=== PATIENT | female | born 1995 | race Caucasian/White ===

== ENCOUNTER 2016-10-06 18:55 | Observation (INO) ==
[2016-10-06 19:18] LABS: Apearance,Urine Slightly Hazy (Clear); Bilirubin,Urine Negative (Negative); Blood, Urine Negative (Negative); Calcium Oxalate Crystals,Urine Many /HPF (Few); Glucose,Urine (UA) Negative (Negative); Ketones,Urine 5 mg/dL (Negative); Mucus,Urine Many /LPF (Occasional); Nitrite,Urine Negative (Negative); Protein,Urine Negative; RBC,Urine 10 /HPF (0-4); Squamous Epithelial Cell,Urine Occasional /HPF (0-10); Urine Color Yellow (Yellow); Urine Specific Gravity 1.028 (1.001-1.035); WBC,Urine 2 /HPF (0-6)
[2016-10-06 19:54] LABS: Barbiturates Screen,Urine Negative (Negative); Benzodiazepines Screen,Urine Negative (Negative); Cannabinoid Screen,Urine Positive (Negative); Opiate Screen,Urine Negative (Negative); Phencyclidine Screen,Urine Negative (Negative)
[2016-10-06 21:40] VITALS: BP 102/56
== END 2016-10-06 20:15 | disposition home or self-care (01) ==
LOC: N.LD
PROVIDERS: ADMIT Obstetrics & Gynecology; ATTEND Obstetrics & Gynecology

== ENCOUNTER 2017-01-31 01:25 | Inpatient (IN) ==
[2017-01-31] MEDS ORDERED: MEPERIDINE 50 MG/1 ML VIAL IV PRN (01:43)
[2017-01-31] MEDS ORDERED: ONDANSETRON 4 MG/2 ML VIAL IV PRN (01:43)
[2017-01-31] MEDS ORDERED: BUTORPHANOL 2 MG/ML VIAL IV PRN (01:43)
[2017-01-31] MEDS ORDERED: PROMETHAZINE 25 MG/1 ML VIAL IM ONE (01:45)
[2017-01-31] MEDS ORDERED: CITRIC ACID/SODIUM CITRATE 30 ML UDCUP PO ONE (01:45)
[2017-01-31] MEDS ORDERED: ePHEDrine 50 MG/ML AMP IV PRN (01:45)
[2017-01-31] MEDS ORDERED: FAMOTIDINE 20 MG/2 ML VIAL IV ONE (01:45)
[2017-01-31] MEDS ORDERED: ONDANSETRON 4 MG/2 ML VIAL IV ONE (01:45)
[2017-01-31] MEDS ORDERED: fentaNYL 2 MCG/ROPIV 0.2% EPID 150 ML EPIDURAL SCH (01:45)
[2017-01-31] MEDS ORDERED: diphenhydrAMINE 50 MG/1 ML VIAL IV PRN ×2 (01:45)
[2017-01-31] MEDS ORDERED: hydrOXYzine HCL 25 MG/1 ML VIAL IM PRN (01:45)
[2017-01-31] MEDS: LACTATED RINGERS 1,000 ML IV SCH ×2 (01:50→02:37)
[2017-01-31] MEDS ORDERED: AMPICILLIN INJ 2,000 MG in SODIUM CHLORIDE 0.9% 100 ML IV ONE (02:08)
[2017-01-31] MEDS ORDERED: SODIUM CHLORIDE 0.9% 100 ML IV ONE ×2 (02:11→05:25)
[2017-01-31] MEDS ORDERED: AMPICILLIN 2,000 MG VIAL ONE (02:11)
[2017-01-31 02:37] LABS: Apearance,Urine CLOUDY (Clear); Bacteria,Urine Few /HPF (Few); Bilirubin,Urine Negative (Negative); Blood, Urine Negative (Negative); Glucose,Urine (UA) Negative (Negative); Ketones,Urine Negative (Negative); Nitrite,Urine Negative (Negative); Protein,Urine Negative; Squamous Epithelial Cell,Urine Occasional /HPF (0-10); Urine Color Yellow (Yellow); Urine Urobilinogen < 2.0 EU/DL (0.2-1.0); WBC,Urine 6 /HPF (0-6)
[2017-01-31 02:38] LABS: Basophils # 0.1 10*3/uL (0.0-0.2); Basophils % 0.5 % (0.0-0.8); Eosinophils # 0.2 10*3/uL (0.0-0.87); Hematocrit 38.2 VOL% (35.7-47.0); Hemoglobin 13.5 GM/DL (12.0-16.0); Immature Granulocytes % 0.9 %; Immature Granulocytes Absolute 0.14 #; Lymphocytes # 3.7 10*3/uL (1.4-4.0); Mean Corpuscular HGB Conc 35.3 GM/DL (32-36); Mean Corpuscular Hemoglobin 31 PG (27-34); Mean Corpuscular Volume 86.6 FL (87-102); Mean Platelet Volume 12.1 FL (9.6-12.0); Monocytes # 1.6 10*3/uL (0.11-0.8); Monocytes % 10.4 % (1.7-12.7); Neutrophils # 9.9 10*3/uL (1.4-7.4); Neutrophils % 63.2 % (38.7-73.9); Platelet Count 175 T/CUMM (130-400); Red Blood Count 4.41 MC/CUMM (3.8-5.5); Red Cell Distribution Width 13.5 % (9.3-17.3); White Blood Count 15.6 T/CUMM (4-12)
[2017-01-31 02:39] LABS: Alanine Aminotransferase 10 U/L (13-56); Albumin 2.3 G/DL (3.4-5.0); Alkaline Phosphatase 140 U/L (45-117); Aspartate Amino Transferase 11 U/L (0-37); Bilirubin,Total < 0.39 MG/DL (0.2-1.0); Blood Urea Nitrogen 10 MG/DL (7-18); Calcium 8.2 MG/DL (8.5-10.1); Glucose 72 MG/DL (74-106); Osmolality,Calculated 280.1 MOS/KG (273-304); Potassium 4.1 MMOL/L (3.5-5.1); Sodium 142 MMOL/L (136-145); Total Protein 5.7 G/DL (6.4-8.3)
[2017-01-31 04:48] LABS: Apearance,Urine CLEAR (Clear); Bacteria,Urine Occasional /HPF (Few); Bilirubin,Urine Negative (Negative); Blood, Urine Negative (Negative); Glucose,Urine (UA) Negative (Negative); Ketones,Urine Negative (Negative); Mucus,Urine Occasional /LPF (Occasional); Nitrite,Urine Negative (Negative); Protein,Urine Negative; RBC,Urine 1 /HPF (0-4); Squamous Epithelial Cell,Urine Occasional /HPF (0-10); Urine Color Straw (Yellow); Urine Specific Gravity 1.009 (1.001-1.035); Urine Urobilinogen < 2.0 EU/DL (0.2-1.0); WBC,Urine <1 /HPF (0-6)
[2017-01-31] MEDS ORDERED: AMPICILLIN 1,000 MG VIAL ONE (05:25)
[2017-01-31] MEDS ORDERED: AMPICILLIN INJ 1,000 MG in SODIUM CHLORIDE 0.9% 100 ML IV SCH (06:30)
[2017-01-31] MEDS ORDERED: OXYTOCIN/LR 20 UNIT/1,000 ML BAG IV ONE ×3 (07:25→09:59)
--- NOTE | 2017-01-31 08:39 | OB/GYN History & Physical ---
History of Present Illness Chief complaint: Patient presented with painful uterine contractions in active labor History of present illness: Ms. Hyman is a 21 year old female who is a primigravida. Her BARB is 02/12/2017 for estimated gestational age of 38 and 2 weeks. The patient presented to the labor department with complaints of painful regular uterine contractions. Upon admission the patient was examined and was 5-6 cm dilated 90% effaced with bulging POW. In light of these findings patient was admitted for active management of labor. The risk and benefits were thoroughly discussed with the patient and significant other, plan of care was discussed with Dr. Bauer and all parties were in agreement plan. The patient received her care through the [facility] and she received routine care, her course was uneventful. labs: She is O+, rubella is immune, serologies nonreactive, hepatitis B negative, HIV negative, GBS culture status unknown, review of systems is negative with exception of above. Home Medications Medication Instructions Recorded Confirmed Type Pediatric Multivitamin No.101 1 each PO DAILY 09/14/16 01/31/17 History [Gummy] Allergies Allergy/AdvReac Type Severity Reaction Status Date / Time No Known Allergies Allergy Verified 01/19/17 13:59 12 point system: reviewed and no additional remarkable complaints except as stated Medical,Surgical,& Family Hx - Medical History Medical History: noncontributory HEENT: History of: Eye Problem (glasses) - Surgical History HEENT Surgeries: Surgical HX of: Tonsilectomy & Adenoidectomy (tonsilectomy) - Family History Family History: Reports;: Family Diabetes (Both parents and both grandparents), Family Heart Disease (Paternal grandfather and maternal grandmother) Denies;: Family Anesthesia Reaction, Family Cancer, Family Hematology, Family Hypertension, Family Psychiatric Problems, Family Stroke - Social History Smoking Status: Current every day smoker Have you smoked in the last 12 months: Yes Frequency of Alcohol Use: None Type of Drug Use: None Marital Status: Single Lives With:: Significant Other Functional capacity: independent ambulation Exam TITLE CLOSER - Constitutional Vitals: Vital Signs Temp Pulse Resp BP Pulse Ox 01/31/17 04:00 98.1 F 89 18 115/56 98 General appearance: mild distress - Antepartum / Post Antepartum Exam Cervix - Dilatation: 5-6 cm upon admission Effacement: 90% effaced Station: 0 station Rupture: Bulging BOW Presentation: Vertex Heart Rate: 130 [place]: Every 2-3 minutes uterine contractions Breast: bilateral: normal Abdomen obstetrics: Present: bowel sounds normal Vagina: Present: normal moisture Uterus exam: Present: enlarged Anus/Rectum: Present: normal perianal skin - Head Head exam: Present: normal inspection - Respiratory Respiratory exam: Present: clear to auscultation bilaterally - Cardiovascular Cardiovascular exam: Present: regular rate and rhythm - GI/Abdominal GI/Abdominal exam: Present: normal bowel sounds - Extremities Exam Extremities exam: Present: normal inspection - Back Exam Back exam: Present: normal inspection - Neurological Exam Neurological exam: Present: alert, oriented X3 - Psychiatric Psychiatric exam: Present: normal affect, normal mood - Skin Skin exam: Present: normal color, warm Assessment and Plan (1) Active labor at term Status: Acute Assessment and plan: Admit IV fluids Artificial rupture membranes when appropriate Epidural anesthesia if desired IV Pitocin per protocol IV antibiotics prophylactically for unknown GBS status Anticipate Current Visit: Yes Results - Labs CBC & BMP: 01/31/17 02:05 01/31/17 02:05
[2017-01-31] MEDS ORDERED: HYDROCORTISONE 2.5% RECTAL CREAM 30 GM TUBE TOP PRN (08:46)
[2017-01-31] MEDS ORDERED: ACETAMINOPHEN 325 MG TABLET PO PRN (08:46)
[2017-01-31] MEDS ORDERED: RHO(D) IMMUNE GLOBULIN 300 MCG SYRINGE IM ONE (08:46)
[2017-01-31] MEDS ORDERED: LANOLIN 50% CREAM 0.3 OZ TUBE TOP PRN (08:46)
[2017-01-31] MEDS ORDERED: IBUPROFEN 800 MG TABLET PO PRN (08:46)
[2017-01-31] MEDS ORDERED: DIPH/TET/ACEL PERT BOOSTER VACCINE 0.5 ML VIAL IM ONE (08:46)
[2017-01-31] MEDS ORDERED: BENZOCAINE 20%/MENTHOL 0.5% SPRAY 56 GM CAN TOP PRN (08:46)
[2017-01-31] MEDS ORDERED: MEASLES/MUMPS/RUBELLA VACCINE 0.5 ML VIAL SUBCUT ONE (08:46)
[2017-01-31] MEDS ORDERED: BISACODYL 10 MG SUPP RECTAL PRN (08:46)
[2017-01-31] MEDS ORDERED: oxyCODONE/ACETAMINOPHEN 5-325 MG TABLET PO PRN ×2 (08:46)
[2017-01-31] MEDS ORDERED: WITCH HAZEL PADS 100/JAR TOP PRN (08:46)
--- NOTE | 2017-01-31 08:46 | Event Note ---
HPI: Ms. Thomas presented to the labor department in active labor. The risk and benefits were thoroughly discussed with the patient and her significant other. Plan of care was discussed with Dr. Bauer and all parties were in agreement plan. Stage I: The patient was admitted she received IV fluids and IV Pitocin per protocol. She progressed in labor with a CAT 1 tracing. She was started on IV Pitocin per protocol. The patient received an epidural for pain control. Artificial rupture membranes was performed with clear fluid noted. The patient continued to progress in labor with a CAT 1 to a CAT 2 tracing. The catheter was correct with position change and oxygenation. Otherwise the patient had an uneventful course of labor. Stage II: The patient was complete and complained of pressure and desire to push. She pushed for approximately 45 minutes after which time the infant's head was delivered. A nuchal cord 1 was noted and reduced. The mouth and nose were suctioned on the perineum. The remainder of the was delivered at 8:15. A viable male infant was noted. Apgars were 7 at 1 minute and 9 at 5 minutes. weight was 5 pounds and 12 ounces. A cord pH was obtained and sent to the lab. Stage III: A spontaneous delivery of a Frausto placenta with a three-vessel cord noted. The placenta was further examined. Grossly intact. The vagina cervix was inspected with no tears or lacerations noted. Estimated blood loss is proximal 125 cc. At the time of dictation mother and baby are both in stable condition.
[2017-01-31] MEDS ORDERED: ACETAMINOPHEN/CODEINE 300-30 MG TABLET PO PRN (08:48)
[2017-01-31] MEDS ORDERED: OXYTOCIN/LR 20 UNIT/1,000 ML BAG IV SCH (10:30)
--- NOTE | 2017-01-31 15:17 | Anesthesia Post-Op ---
Anesthesia Post OP - Post Ansesthetic Evaluation Patient seen in post op: Yes Resp: within normal limits CV: within normal limits Mental: within normal limits Temp: within normal limits [id number]: within normal limits Nausea and Vomiting: within normal limits Pain: within normal limits
[2017-01-31] MEDS: DOCUSATE SODIUM 100 MG CAPSULE PO SCH (21:50)
[2017-02-01 06:05] LABS: Basophils # 0.1 10*3/uL (0.0-0.2); Basophils % 0.4 % (0.0-0.8); Eosinophils # 0.2 10*3/uL (0.0-0.87); Eosinophils % 1.3 % (0.00-10.9); Hematocrit 41.6 VOL% (35.7-47.0); Hemoglobin 13.9 GM/DL (12.0-16.0); Immature Granulocytes % 0.6 %; Immature Granulocytes Absolute 0.07 #; Lymphocytes # 3.1 10*3/uL (1.4-4.0); Lymphocytes % 25.8 % (21.3-54.2); Mean Corpuscular HGB Conc 33.4 GM/DL (32-36); Mean Corpuscular Hemoglobin 30 PG (27-34); Mean Corpuscular Volume 88.7 FL (87-102); Mean Platelet Volume 12.2 FL (9.6-12.0); Monocytes # 0.9 10*3/uL (0.11-0.8); Monocytes % 7.6 % (1.7-12.7); Neutrophils # 7.8 10*3/uL (1.4-7.4); Neutrophils % 64.3 % (38.7-73.9); Platelet Count 147 T/CUMM (130-400); Red Blood Count 4.69 MC/CUMM (3.8-5.5); Red Cell Distribution Width 13.8 % (9.3-17.3); White Blood Count 12.1 T/CUMM (4-12)
[2017-02-01] MEDS: DOCUSATE SODIUM 100 MG CAPSULE PO SCH ×2 (09:05→21:30)
--- NOTE | 2017-02-01 11:02 | Progress Note ---
Family Medicine PN Sub Interval history: day #1 Status post vaginal Patient is ambulating well, without any major complaints Lungs are clear cardiac exam benign breast without masses Abdomen soft nontender Extremities well with no limits and neurologic grossly intact assessment plan we will discharge to in the a.m. follow-up our office approximately 6 weeks. Exam (Progress Note) - Constitutional Vitals: Period Temp Pulse Resp BP Sys/Parra Pulse Ox Last 24 Hr 96.8 F-98.8 F 71-87 18-20 99-116/49-82 95-99 Results - Labs CBC & BMP: 02/01/17 05:42 01/31/17 02:05 Quality Measures - VTE Contraindication to Pharmacological VTE Prophylaxis: Clinical assessment deems Pt at low risk, no prophalaxis needed
--- NOTE | 2017-02-01 11:04 | Discharge Summary ---
Hospital Course - Hospital Course Hospital Course: 09 Discharge Plan - Discharge Data Disposition: Disch To Home/Self Care Condition at Discharge: Stable Discharge Diet: advance to your usual diet Activity: resume usual activities as tolerated Hygiene: may shower Weight Bearing at Discharge: weight bear as tolerated Driving: no restrictions Contact your physician if you experience:: fever over 101, Bleeding - Discharge Medications New Ibuprofen Tab [Motrin Tab] 800 mg PO Q6H PRN #30 tablet PRN Reason: Pain Moderate (4-7) Acetamin/Codeine 300-30 Tab [Tylenol/Codeine #3] 2 tablet PO Q4H PRN #30 tablet PRN Reason: Pain Mild (1-3) No Action Pediatric Multivitamin No.101 [Gummy] 1 each PO DAILY - Follow Up or Referral - Forms/Instructions Exam - Constitutional Vitals: Period Temp Pulse Resp BP Sys/Parra Pulse Ox Last 24 Hr 96.8 F-98.8 F 71-87 18-20 99-116/49-82 95-99 Discharge Results Procedures and tests throughout hospitalization: Pending Orders 01/31/17 Urine Culture Routine Labs on day of discharge: Labs from last 24 hours 02/01/17 05:42 WBC 12.1 H RBC 4.69 Hgb 13.9 Hct 41.6 MCV 88.7 MCH 30 MCHC 33.4 RDW 13.8 Plt Count 147 MPV 12.2 H Neut % (Auto) 64.3 Lymph % (Auto) 25.8 [place] % (Auto) 7.6 Eos % (Auto) 1.3 Baso % (Auto) 0.4 Neut # (Auto) 7.8 H Lymph # (Auto) 3.1 [place] # (Auto) 0.9 H Eos # (Auto) 0.2 Baso # (Auto) 0.1 Immature Gran % 0.6 Nucleated RBC % 0.0 Immature Gran # 0.07 Nucleated RBCs # 0.00 DS: Provider Date of admission: 01/31/17 01:43 Primary care physician: Peg Bauer MD Attending physician on admission: Peg Bauer MD Consults: 01/31/17 01:43 Consult to Anesthesiology [CONS] Routine Consulting Provider: Reason for Anesthesiology: Epidural Consult Comment: Epidural for pain managment 01/31/17 08:47 Consult to Quality Engineering Manager [CONS] Routine Consult Quality Engineering Manager: Breast Feeding Discharging clinician: Peg Bauer MD
[2017-02-02 08:10] VITALS: BP 85/44
[2017-02-02] MEDS: DOCUSATE SODIUM 100 MG CAPSULE PO SCH (09:03)
== END 2017-02-02 14:20 | disposition home or self-care (01) | DRG 560 ==
LOC: N.LDOUT 01:25 → N.LD 01:28 → N.OB 09:52
PROVIDERS: ADMIT Obstetrics & Gynecology; ATTEND Obstetrics & Gynecology